=== PATIENT | female | born 1940 | race Caucasian/White ===

== ENCOUNTER 2016-07-14 19:01 | Emergency (ER) | payer MEDICARE, BC ==
--- NOTE | 2016-07-14 19:35 | Emergency Department Record ---
History of Present Illness - General Chief complaint: Pain Stated complaint: L HIP PAIN Time Seen by Provider: 07/14/16 19:35 Source: Patient Mode of Arrival: EMS Limitations: No limitations - History of Present Illness Initial comments: The patient is here due to having increasing L hip and leg pain S/P fall 11 days ago. She has been evaluated in [facility] in the ER and thru her PCP's office and was found to have a pelvic fx. Now she is having increasing pain and difficulty walking with leg spasms. She is having a very difficult problem ambulating at home due to the increasing. There has been no new falls or injuries. The patient also is having increased leg swelling L>R also but denies any CP or SOB. MD Complaint: Extremity pain, Extremity swelling Onset/Timin -: Days(s) Location: Left, Thigh History of Same: Yes - Related Data Home Medications Medication Instructions Recorded Confirmed Last Taken Acetaminophen/Diphenhydramine 1 each PO ASDIR PRN 07/14/16 07/14/16 07/14/16 [Tylenol Pm Ex-Strength Caplet] Allopurinol [Zyloprim] 100 mg PO DAILY 07/14/16 07/14/16 07/14/16 Amlodipine Besylate [Norvasc] 10 mg PO DAILY 07/14/16 07/14/16 07/14/16 Calcitonin,Odon,Synthetic 3.7 ml NS DAILY 07/14/16 07/14/16 07/14/16 [Miacalcin] Calcium Carbonate [Calcium] 600 mg PO DAILY 07/14/16 07/14/16 07/14/16 Cetirizine HCl [Zyrtec] 10 mg PO DAILY 07/14/16 07/14/16 07/14/16 Cholecalciferol (Vitamin D3) 2,000 unit PO DAILY 07/14/16 07/14/16 07/14/16 [Vitamin D3] Furosemide [Lasix] 20 mg PO DAILY 07/14/16 07/14/16 07/14/16 Losartan Potassium [Cozaar] 25 mg PO BID 07/14/16 07/14/16 07/14/16 Metoprolol Succinate [Toprol Xl] 100 mg PO DAILY 07/14/16 07/14/16 07/14/16 Multivitamin with Minerals [Icaps 1 each PO BIDDIUR 07/14/16 07/14/16 07/14/16 Plus] Oxycodone HCl/Acetaminophen 1 tab PO Q6H PRN 07/14/16 07/14/16 07/14/16 [Percocet 5mg/325mg] Polyethylene Glycol 3350 [Miralax] 17 gm PO DAILY 07/14/16 07/14/16 07/14/16 Potassium Chloride [Klor-Con] 20 meq PO DAILY 07/14/16 07/14/16 07/14/16 Ranitidine HCl [Zantac] 150 mg PO BID 07/14/16 07/14/16 07/14/16 Vit C/Rosas & Celery Ex/Grp E 1 each PO DAILY 07/14/16 07/14/16 Unknown [Tart Rosas Capsule] Allergies Allergy/AdvReac Type Severity Reaction Status Date / Time adhesive tape AdvReac RASH Verified 07/14/16 19:37 Review of Systems Constitutional: Denies: Chills, Fever Eyes: Denies: Eye discharge ENT: Denies: Congestion Respiratory: Denies: Cough, Dyspnea Past Medical History - SOCIAL HISTORY Smoking Status: Never smoker Alcohol Use: None Drug Use: None - RESPIRATORY Hx Respiratory Disorders: No - CARDIOVASCULAR Hx Cardio Disorders: No Physical Exam - General General Appearance: Alert, Oriented x3, Cooperative, No acute distress - Head Head exam: Atraumatic, Normocephalic, Normal inspection - Eye Eye exam: Normal appearance, PERRL - ENT Throat exam: Normal inspection. negative: Tonsillar erythema, Tonsillar exudate - Neck Neck exam: Normal inspection, Full ROM. negative: Tenderness - Respiratory Respiratory exam: Normal lung sounds bilaterally, Chest wall tenderness (There is tenderness to the L upper chest wall with significant bruising.). negative: Respiratory distress - Cardiovascular Cardiovascular Exam: Regular rate, Normal rhythm, Normal heart sounds - GI/Abdominal GI/Abdominal exam: Soft, Normal bowel sounds. negative: Tenderness - Extremities Extremities exam: Pedal edema (2+ L>R.). negative: Normal inspection - Back Back exam: Reports: Normal inspection - Psychiatric Psychiatric exam: negative: Agitated, Anxious, Depressed Course Vital Signs 07/14/16 19:26 Temperature 98.0 F Pulse Rate [ 82 Pulse Ox Probe] Respiratory 18 Rate Blood Pressure 138/74 [Left Arm] Pulse Ox 96 - Reevaluation(s) Reevaluation #1: The patient is doing very well at this time. She denies any chest pain, SOB or new discomfort. She would like something for pain. 07/14/16 21:00 07/14/16 21:11 Reevaluation #2: Due to the need for a doppler test to R/O DVT and also for a need for further Orthopedic Consultation I did discuss the need to transfer the patient to a larger hospital. Due to the patient having all of her physicians at the [facility] the family determined that is where she would need to go. I did discuss the case with Dr. Carmona who is the ER doctor working at this time and she did accept the patient in an ER to ER transfer. She has no CP , CHARLIE, or dyspnea at this time and I do not feel she has a PE at this time. I am not convinced she has DVT for sure but clearly she needs the test emergently to be sure. Her leg has been swollen since the fall so most likely the edema is due to the fx. For that reason I did not start her on blood thinners. 07/14/16 21:12 Medical Decision Making - Data Complexity MDM Data: Labs Ordered and/or Reviewed, X-Ray Ordered and/or Reviewed - Lab Data Result diagrams: 07/14/16 20:03 07/14/16 20:03 - Radiology Data Radiology results: Report reviewed (CXR: No acute dz.) Disposition Disposition: Transfer Clinical Impression: Leg edema, left Acetabulum fracture, left Qualifiers: Encounter type: initial encounter Sublocation of acetabulum: unspecified portion of acetabulum Fracture type: closed Fracture alignment: displaced Qualified Code(s): S32.402A - Unspecified fracture of left acetabulum, initial encounter for closed fracture Transfer To: [facility] Reason For Transfer: Acetabular fx. Accepting Physician: Kristine Time Discussed w/Accepting Physician: 21:16 Time of Disposition: 21:16
[2016-07-14 20:15] LABS: MEAN CELL VOLUME 92.3 fl (81-97); MEAN CORPUSCULAR HEMOGLOBIN 30.8 pg (27-33); MEAN CORPUSCULAR HGB CONC 33.3 g/dl (32-36); RED BLOOD COUNT 4.55 M/uL (3.80-5.40); RED CELL DISTRIBUTION WIDTH 15.3 % (11.5-14.5); WHITE BLOOD COUNT W/O DIFF 13.1 K/uL (4.2-12.2)
[2016-07-14 20:21] LABS: PLATELET COUNT 34 K/uL (130-400); URINE APPEARANCE CLEAR; URINE BILIRUBIN NEGATIVE (NEGATIVE); URINE BLOOD NEGATIVE (NEGATIVE); URINE COLOR YELLOW; URINE GLUCOSE (UA) NEGATIVE (NEGATIVE); URINE KETONE NEGATIVE (NEGATIVE); URINE LEUKOCYTE ESTERASE NEGATIVE (NEGATIVE); URINE NITRITE NEGATIVE (NEGATIVE); URINE PROTEIN NEGATIVE (NEGATIVE); URINE UROBILINOGEN 0.2 E.U./dL (0.20 - 1.00)
[2016-07-14 20:30] LABS: ALBUMIN 4.2 gm/dL (3.5-5.0); ALKALINE PHOSPHATASE 91 U/L (38-126); ALT/SGPT 25 U/L (9-52); ANION GAP 13.8 (7-16); AST/SGOT 32 U/L (14-36); BILIRUBIN,TOTAL 0.69 mg/dL (0.2-1.3); BLOOD UREA NITROGEN 13 mg/dL (7-17); CARBON DIOXIDE 27.2 mmol/L (22-30); CREATININE 0.8 mg/dL (0.52-1.04); EST GLOMERULAR FILTRATION RATE > 60 ml/min; GLUCOSE,RANDOM 153 mg/dL (70-110); INR 0.96; PARTIAL THROMBOPLASTIN TIME 25.9 SECONDS (24.5-39.1); PROTHROMBIN TIME (PATIENT) 10.9 SECONDS (9.5-12.1); TOTAL PROTEIN 7.5 gm/dL (6.3-8.2)
[2016-07-14 20:43] LABS: HYPOCHROMIA 2+
[2016-07-14] MEDS ORDERED: ONDANSETRON HCL IV 4 MG/2 ML VIAL IVP ONE (21:11)
[2016-07-14] MEDS: HYDROMORPHONE HCL 1 MG/ML CPJ IVP ONE ×2 (21:21→21:35)
--- NOTE | 2016-07-18 08:23 | RADIOLOGY REPORT ---
EXAM: CHEST, TWO VIEWS HISTORY: DIFFICULTY BREATHING. TECHNIQUE: Frontal and lateral views of the chest were performed. Comparison: None. FINDINGS: The heart size is normal. There is no pulmonary vascular congestion. No infiltrate or pleural effusion. IMPRESSION: NO ACUTE PULMONARY DISEASE PROCESS. JOB NUMBER: [id number] MTDD
== END 2016-07-14 21:52 | disposition short-term general hospital (02) ==
LOC: ER 19:01
DX: S32.402A Unspecified fracture of left acetabulum, initial encounter for closed fracture (principal); S20.212A Contusion of left front wall of thorax, initial encounter; R06.00 Dyspnea, unspecified; W19.XXXA Unspecified fall, initial encounter
CPT/HCPCS: 99285 ×2; 96374; 96375; 85730; 85610; 80076; 80048; 81003; 85027; 71020; J2405; J1170